=== PATIENT | female | born 1965 | race Two or more races ===

== ENCOUNTER → 2024-06-19 | Outpatient (CLI) | payer MEDICAID, SELFPAY ==
--- NOTE | 2024-06-19 14:00 | XR_ITS ---
Examination: Breast ultrasound, unilateral, left complete Date and time of exam: June 19, 2024 1355 hours INDICATIONS: Left breast sonogram 1:00 nodule 9 x 6 mm on November 17, 2021 Technique: Real-time moreau scale ultrasonographic imaging performed left breast including all 4 quadrants as well as nipple retroareolar and axillary region. Findings: 12:00 cyst 9 x 3 x 8 mm No solid nodules IMPRESSION: BI-RADS Category 2: Benign findings
== END | disposition home or self-care (01) ==
PROVIDERS: PCP Family Medicine; Referring Provider Family Medicine; Visit Provider Family Medicine
DX: N60.02 Solitary cyst of left breast (principal)
CPT/HCPCS: 76641